=== PATIENT | female | born 1985 | race Caucasian/White ===

== ENCOUNTER 2021-06-01 09:53 | Observation (INO) ==
[2021-06-01 11:15] LABS: Basophils # 0.1 K/mcL (0.0-0.2); Eosinophils # 0.3 K/mcL (0.0-0.6); Eosinophils % 2.4 %; Hematocrit 45.7 % (35.3-44.9); Hemoglobin 15.3 g/dL (11.5-15.4); Immature Granulocytes % 0.4 % (0-4); Lymphocytes # 2.3 K/mcL (0.6-4.6); Lymphocytes % 17.2 %; Mean Corpuscular HGB Conc 33.5 g/dL (31.6-35.5); Mean Corpuscular Hemoglobin 30.5 pg (28.0-33.3); Mean Platelet Volume 9.9 fL (9.4-12.4); Monocytes # 1.2 K/mcL (0.0-1.3); Monocytes % 8.7 %; Neutrophils # 9.3 K/mcL (1.6-8.9); Platelet Count 238 K/mcL (140-400); Red Blood Count 5.02 M/mcL (3.82-4.97); Red Cell Distribution Width 13.4 % (11.5-14.5); Segmented Neutrophils % 70.3 %; White Blood Count 13.3 K/mcL (4.3-11.1)
[2021-06-01 11:19] LABS: Bacteria,Urine Few per hpf (None-Few); Bilirubin,Urine Negative (Negative); Blood,Urine Moderate (Negative); Clarity,Urine Clear (Clear); Color,Urine Light-Yellow (Yellow); Glucose,Urine (UA) Normal (Normal); Ketones,Urine 40 mg/dL (Negative); Leukocyte Esterase,Urine Trace (Negative); Mucus,Urine Few per lpf (None-Few); Nitrite,Urine Negative (Negative); Protein,Urine >=300 mg/dL (Neg-Trace); RBC,Urine 50-100 per hpf (0-3); Specific Gravity,Urine 1.028 (1.010-1.025); Squamous Epithelial Cell,Urine Moderate per hpf (None-Few); Urobilinogen,Urine Normal (Normal); WBC,Urine 15-30 per hpf (0-3)
[2021-06-01 11:51] LABS: Alanine Aminotransferase 14 Units/L (7-52); Albumin 4.4 g/dL (3.5-5.7); Albumin/Globulin Ratio 1.8 (1.1-2.2); Alkaline Phosphatase 22 Units/L (34-104); Amylase 36 Units/L (29-103); Aspartate Amino Transferase 13 Units/L (13-39); BUN/Creatinine Ratio 23 (6-26); Bilirubin,Direct 0.1 mg/dL (0.0-0.2); Bilirubin,Indirect 0.6 mg/dL (0.0-1.0); Bilirubin,Total 0.7 mg/dL (0.3-1.0); Blood Urea Nitrogen 23 mg/dL (6-20); Calcium 9.6 mg/dL (8.6-10.3); Carbon Dioxide 24 mEq/L (23-29); Chloride 106 mEq/L (98-107); Globulin 2.4 g/dL (2.4-3.5); Glucose 89 mg/dL (70-105); Lipase 19 Units/L (11-82); Osmolality,Calculated 291 (280-300); Potassium 4.3 mEq/L (3.5-5.1); Sodium 139 mEq/L (136-145); Total Protein 6.8 g/dL (6.4-8.9); eGFR For African Americans > 60 (> 60); eGFR For Non-African Americans > 60 (> 60)
[2021-06-01] MEDS ORDERED: *HR* FentaNYL (PF) 100 MCG/2 ML VIAL IVP ONE (12:06)
[2021-06-01] MEDS ORDERED: cefTRIAXone 1,000 MG in Water for inj. (sterile) 10 ML IVP ONE (13:23)
[2021-06-01] MEDS ORDERED: Naloxone 0.4 MG/ML INJ IVP PRN (13:25)
[2021-06-01] MEDS ORDERED: Melatonin 3 MG TABLET PO PRN (13:25)
[2021-06-01] MEDS ORDERED: Ondansetron 4 MG/2 ML VIAL IVP PRN (13:25)
[2021-06-01] MEDS ORDERED: Acetaminophen 325 MG TABLET PO PRN (14:14)
[2021-06-01] MEDS ORDERED: Ketorolac 30 MG/ML VIAL IVP PRN (14:28)
[2021-06-01] MEDS: 0.9 % Sodium Chloride 1,000 ML IVC SCH (16:17)
[2021-06-02 01:45] LABS: Hematocrit 40.4 % (35.3-44.9); Hemoglobin 13.9 g/dL (11.5-15.4); Mean Corpuscular HGB Conc 34.4 g/dL (31.6-35.5); Mean Corpuscular Hemoglobin 31.5 pg (28.0-33.3); Mean Corpuscular Volume 91.6 fL (83.0-100.0); Mean Platelet Volume 10.1 fL (9.4-12.4); Platelet Count 225 K/mcL (140-400); Red Blood Count 4.41 M/mcL (3.82-4.97); Red Cell Distribution Width 13.2 % (11.5-14.5); White Blood Count 11.4 K/mcL (4.3-11.1)
[2021-06-02 02:02] LABS: BUN/Creatinine Ratio 19 (6-26); Blood Urea Nitrogen 17 mg/dL (6-20); Calcium 8.5 mg/dL (8.6-10.3); Carbon Dioxide 26 mEq/L (23-29); Chloride 104 mEq/L (98-107); Glucose 77 mg/dL (70-105); Osmolality,Calculated 284 (280-300); Potassium 3.8 mEq/L (3.5-5.1); Sodium 137 mEq/L (136-145); eGFR For African Americans > 60 (> 60); eGFR For Non-African Americans > 60 (> 60)
[2021-06-02] MEDS: 0.9 % Sodium Chloride 1,000 ML IVC SCH (05:49)
[2021-06-02] MEDS ORDERED: *HR* Propofol 200 MG/20 ML VIAL IVP ONE ×2 (07:22)
[2021-06-02] MEDS ORDERED: *HR* Midazolam HCl 2 MG/2 ML VIAL ONE (07:23)
[2021-06-02] MEDS ORDERED: *HR* FentaNYL (PF) 100 MCG/2 ML VIAL ONE (07:23)
[2021-06-02] MEDS ORDERED: Isovue-300 50ML VIAL ONE (07:29)
[2021-06-02] MEDS ORDERED: Ketamine HCL *QUVA* 50mg (1mL) SYRINGE ONE (07:44)
[2021-06-02] MEDS ORDERED: EPHEDrine 50 MG/ML VIAL ONE (08:01)
[2021-06-02] MEDS ORDERED: Ketorolac 30 MG/ML VIAL ONE (08:01)
[2021-06-02] MEDS ORDERED: Naloxone 0.4 MG/ML INJ IVP PRN ×2 (08:16→09:16)
[2021-06-02] MEDS ORDERED: *HR* HYDROmorphone (PF) 1 MG/ML SYRINGE IVP PRN (08:16)
[2021-06-02] MEDS ORDERED: *HR* FentaNYL (PF) 100 MCG/2 ML VIAL IVP PRN (08:16)
[2021-06-02] MEDS ORDERED: Nitroglycerin 0.4 MG TAB.SUBL SL PRN (08:16)
[2021-06-02] MEDS ORDERED: Albuterol 2.5 MG/3 ML NEBULIZER IH PRN (08:16)
[2021-06-02] MEDS ORDERED: Ondansetron 4 MG/2 ML VIAL IVP PRN ×2 (08:16→09:16)
[2021-06-02 08:47] VITALS: TEMP 98.6
[2021-06-02] MEDS ORDERED: cefTRIAXone 1,000 MG in Water for inj. (sterile) 10 ML IVP SCH (09:00)
[2021-06-02] MEDS ORDERED: Acetaminophen 325 MG TABLET PO PRN (09:16)
[2021-06-02] MEDS ORDERED: Ketorolac 30 MG/ML VIAL IVP PRN (09:16)
[2021-06-02] MEDS ORDERED: 0.9 % Sodium Chloride 1,000 ML IVC SCH (09:16)
[2021-06-02] MEDS ORDERED: Melatonin 3 MG TABLET PO PRN (09:16)
[2021-06-02] MEDS ORDERED: cefTRIAXone 1,000 MG in 0.9 % Sodium Chloride 10 ML IVP SCH (09:33)
[2021-06-02 12:29] VITALS: BP 111/74; PULSE 62; O2SAT 97
[2021-06-03] MEDS ORDERED: cefTRIAXone 1,000 MG in 0.9 % Sodium Chloride 10 ML IVP SCH (09:00)
== END 2021-06-02 14:03 | disposition home or self-care (01) ==
LOC: EMEROOARM 09:53 → 3BNU 09:53 → SUATTDRO 13:32 → 3BNU 15:00
PROVIDERS: ADMIT Family Medicine; ATTEND Internal Medicine